=== PATIENT | female | born 1950 | race Caucasian/White ===

== ENCOUNTER 2017-01-25 06:37 | Emergency (ER) | payer OTHER ==
[2017-01-25 06:41] VITALS: TEMP 98.1
--- NOTE | 2017-01-25 06:57 | EDPHY ---
H & P Stated Complaint: R flank pain HPI/ROS: CHIEF COMPLAINT: Right flank pain. HISTORY OF PRESENT ILLNESS: The patient is a 66 year old female who presents to the emergency department with sudden onset of right flank pain that started at 5am. The patient woke up with pain radiating around the right side of her abdomen. She felt nauseated and diaphoretic secondary to pain. She is uncomfortable when lying on her back. Her pain slightly improves with ambulation. She denies any urinary complaints. The patient saw a sewing machine maintenance mechanic 3 days ago, and reports that the therapy involved some very deep tissue massage. She did not have any pain after the appointment. However, this morning's pain seemed to the patient to be muscular in etiology. She denies a recent fall or trauma. She denies fever, chills, chest pain, shortness of breath , palpitations, vomiting, diarrhea, headache, or lightheadedness. No pleuritic chest pain. REVIEW OF SYSTEMS: Aside from elements discussed in the HPI, a comprehensive 10-point review of systems was reviewed and is negative. PAST MEDICAL HISTORY: Scoliosis. SOCIAL HISTORY: . VITAL SIGNS: Reviewed by me GENERAL: Well-developed, well-nourished, resting comfortably in no respiratory distress. HEENT: Atraumatic. Eyes: No icterus, no injection. Mouth: moist mucous membranes. No erythema or lesions. Neck: supple with no adenopathy. LUNGS: Clear to auscultation bilaterally, no wheezes, rhonchi or rales. CARDIAC: Regular rate and rhythm, no rubs, murmurs or gallops. ABDOMEN: Soft, nontender, nondistended, bowel sounds normal. No palpable sensation. BACK: On palpation, there is a popping sensation and instability of the lower costal margin on the right. TTP CVA right EXTREMITIES: No trauma. No edema. Range of motion is normal throughout. NEURO: Alert and oriented, grossly nonfocal. SKIN: Warm and dry, no rash. PSYCHIATRIC: Normal mentation, no agitation. Portions of this note were transcribed by a medical writer. I personally performed a history, physical exam, medical decision making, and confirmed accuracy of information the transcribed note. Source: Patient - Personal History Current Tetanus/Diphtheria Vaccine: Yes Current Tetanus Diphtheria and Acellular Pertussis (TDAP): Yes - Medical/Surgical History Hx Asthma: No Hx Chronic Respiratory Disease: No Hx Diabetes: No Hx Cardiac Disease: No Hx Renal Disease: No Hx Cirrhosis: No Hx Alcoholism: No Hx HIV/AIDS: No Hx Splenectomy or Spleen Trauma: No - Social History Smoking Status: Former smoker Constitutional: Initial Vital Signs Temperature (C) 36.7 C 01/25/17 06:39 Heart Rate 69 01/25/17 06:39 Respiratory Rate 16 01/25/17 06:39 Blood Pressure 123/83 H 01/25/17 06:39 O2 Sat (%) 97 01/25/17 06:39 O2 Delivery Mode Room Air Allergies/Adverse Reactions: aspirin Allergy (Verified 01/25/17 06:39) Home Medications: Medication Instructions Recorded Cyclobenzaprine [Flexeril 10 MG 10 mg PO TID PRN #20 tab 01/25/17 (RX)] Hydrocodone/APAP 5/325 [Flatgap 1 tab PO Q6H PRN #10 tab 01/25/17 5/325 (RX)] Medical Decision Making - Diagnostics Imaging: Results: CT scan of the abdomen/pelvis was obtained. I viewed the images independently on the PACS system. I discussed the results of the study with the radiologist. Impression: No stone. Normal. Please see the full radiology report. ED Course/Re-evaluation: The patient received 30mg Toradol IV for pain. UA is pending. I ordered CT abd/ pelv to rule out renal colic , evaluate for lower rib fractures, evaluate for pneumothorax or pleural effusions, and to evaluate for aortic aneurysm. CT is normal. UA is negative for infection. I discussed the CT results with the patient. Patient had received some relief with Toradol, but reports to me that her pain is recurring. Patient received Dilaudid 0.5 mg. Lidocaine patch was also ordered to be placed over the area tenderness in the CVA. Plan to discharge home with Flexeril, Flatgap, and follow up. Differential Diagnosis: Differential diagnosis of the patient's flank pain was considered including but not limited to musculoskeletal causes, kidney stone, pyelonephritis, shingles, and intra-abdominal causes such as diverticulitis and appendicitis. - Data Points Laboratory Results: 01/25/17 01/25/17 06:52 06:45 POC Hgb 16.0 gm/dL H gm/dL (12.3-15.9) POC Hct 47 % % (35.5-47.5) POC Sodium 143 mEq/L mEq/L (134-144) POC Potassium 3.8 mEq/L mEq/L (3.3-5.0) POC Chloride 104 mEq/L mEq/L (96-108) POC BUN 27 mg/dL H mg/dL (7-23) POC Creatinine 1.0 mg/dL mg/dL (0.6-1.2) POC Glucose 125 mg/dL H mg/dL (70-100) Urine Color YELLOW Urine Appearance CLEAR Urine pH 6.0 (5.0-7.5) Ur Specific [place] 1.018 (1.002-1.030) Urine Protein NEGATIVE (NEGATIVE) Urine Ketones NEGATIVE (NEGATIVE) Urine Blood NEGATIVE (NEGATIVE) Urine Nitrate NEGATIVE (NEGATIVE) Urine Bilirubin NEGATIVE (NEGATIVE) Urine Urobilinogen NEGATIVE EU EU (0.2-1.0) Ur Leukocyte Esterase NEGATIVE (NEGATIVE) Urine RBC 1-3 /hpf /hpf (0-3) Urine WBC 1-3 /hpf /hpf (0-3) Ur Epithelial Cells TRACE /lpf /lpf (NONE-1+) Urine Mucus TRACE /lpf /lpf (NONE-1+) Urine Glucose NEGATIVE (NEGATIVE) Medications Given: Discontinued Medications Hydromorphone HCl (Dilaudid) 0.5 mg IVP EDNOW ONE Stop: 01/25/17 08:51 Last Admin: 01/25/17 09:05 Dose: 0.5 mg Ketorolac Tromethamine (Toradol) 30 mg IVP EDNOW ONE Stop: 01/25/17 07:05 Last Admin: 01/25/17 07:13 Dose: 30 mg Lidocaine (Lidoderm 5%) 1 ea TD DAILY ONE Stop: 01/25/17 08:43 Last Admin: 01/25/17 09:05 Dose: 1 ea Point of Care Test Results: 01/25/17 06:52 POC Sodium 143 POC Potassium 3.8 POC Chloride 104 POC BUN 27 H POC Creatinine 1.0 POC Glucose 125 H Departure - Departure Disposition: Home, Routine, Self-Care Clinical Impression: Musculoskeletal pain, Right flank pain Condition: Good Instructions: Flank Pain (ED) Additional Instructions: #1. I recommend Ibuprofen (Motrin, Advil) or Naproxen Sodium (Aleve) for pain and anti-inflammatory effects. You may take either one, but do not take both. Your dose is: Ibuprofen 600 mg every 6-8 hours with food. OR Naproxen Sodium (Aleve) 220 mg every 12 hours. #2. Take Flexeril as directed for muscle spasm. #3. Take Flatgap for severe pain. #5. In the emergency department, a lidocaine patch 5% was placed. (4% lidocaine topical jelly is available over the counter, you may use this for topical pain relief.) #6. Followup with your primary care physician as needed. The was an incidental finding on your CT of 7mm area of hyperdensity in the lower right kidney. Please discuss this with your PCP to have a followup ultrasound at some point. Referrals: Alvina Fraire MD [Primary Care Provider] - As per Instructions Prescriptions: Cyclobenzaprine [Flexeril 10 MG (RX)] 10 mg PO TID PRN #20 tab PRN Reason: Muscle Spasms Hydrocodone/APAP 5/325 [Flatgap 5/325 (RX)] 1 tab PO Q6H PRN #10 tab PRN Reason: Pain Report Scribed for: Brandee Sanchez Report Scribed by: Merced Combs Date of Report: 01/25/17 Time of Report: 07:00
[2017-01-25] MEDS ORDERED: KETOROLAC 30 MG/1 ML SDV ONE (06:58)
[2017-01-25 07:01] LABS: COLOR YELLOW; LEUKOCYTE ESTERASE,URINE NEGATIVE (NEGATIVE); NITRITE,URINE NEGATIVE (NEGATIVE)
[2017-01-25] MEDS ORDERED: KETOROLAC 30 MG/1 ML SDV IVP ONE (07:04)
[2017-01-25 07:10] LABS: MUCUS TRACE /lpf (NONE-1+)
[2017-01-25] MEDS ORDERED: LIDOCAINE 5% 1 EA PATCH TD ONE (08:42)
[2017-01-25] MEDS ORDERED: HYDROmorphONE/DILAUDID 1 MG/ML SYR IVP ONE (08:50)
[2017-01-25 10:03] VITALS: BP 109/67; PULSE 64; RESP 14; O2SAT 90
[2017-01-25] MEDS ORDERED: PATCH REMOVAL 1 EA PATCH TD SCH (21:00)
== END 2017-01-25 10:02 | disposition home or self-care (01) ==
DX: R10.9 Unspecified abdominal pain (principal); M79.1 Myalgia; Z87.891 Personal history of nicotine dependence
CPT/HCPCS: 74176; 96374; 96375; 99285; J1170; J1885; 82947-QW

== ENCOUNTER → 2017-01-29 | Outpatient (CLI) | payer OTHER | LOC: BMCIMAGING 09:56 | PROVIDERS: ATTEND Internal Medicine | DX: N28.1 Cyst of kidney, acquired (principal) ==